=== PATIENT | female | born 1990 | race Asian ===

== ENCOUNTER 2018-08-10 00:56 | Inpatient (IN) | payer OTHER ==
[~2018-08-10] VITALS: Ht 157.5 cm; Wt 67.3 kg
[~2018-08-10 00:56] MED LIST: DOCU-131 PO; IBUP-1222 PO; OXYC-302 PO
[2018-08-10 01:20] VITALS: BP 107/55
[2018-08-10] MEDS: LACTATED RINGERS 1,000 ML IV SCH ×4 (01:39→17:57)
[2018-08-10] MEDS ORDERED: D5%-LACTATED RINGERS 1,000 ML IV SCH (01:39)
[2018-08-10] MEDS ORDERED: OXYTOCIN 30U/ 0.9% NaCL 500ML 500 ML IV ONE (01:39)
[2018-08-10] MEDS ORDERED: NEWBORN KIT ONE (01:44)
[2018-08-10] MEDS ORDERED: MISOPROSTOL 200 MCG TABLET ONE (01:44)
[2018-08-10] MEDS ORDERED: OXYTOCIN 30U/ 0.9% NaCL 500ML 500 ML ONE ×3 (01:44→19:38)
[2018-08-10] MEDS ORDERED: LIDOCAINE 1%, 20ML ONE (01:44)
[2018-08-10] MEDS ORDERED: FENTANYL PF 100 MCG/2ML IV PRN (02:00)
[2018-08-10] MEDS ORDERED: CALCIUM CARBONATE 500 MG TAB.CHEW PO PRN (02:00)
[2018-08-10] MEDS ORDERED: ONDANSETRON 2MG/ML, 2ML IVPush PRN (02:00)
[2018-08-10] MEDS ORDERED: SODIUM CITRATE/CITRIC ACID 15 ML UDC PO PRN (02:00)
[2018-08-10] MEDS ORDERED: METOCLOPRAMIDE 5 MG/ML, 2ML IVPush PRN (02:00)
[2018-08-10 02:16] LABS: BASOPHILS # (AUTO) 0.09 x10^3/uL (0-0.1); BASOPHILS % (AUTO) 1 % (0-1); EOSINOPHILS # (AUTO) 0.05 x10^3/uL (0-0.4); EOSINOPHILS % (AUTO) 1 % (1-7); LYMPHOCYTES # (AUTO) 1.57 x10^3/uL (1-3.4); LYMPHOCYTES % (AUTO) 16 % (22-44); MD NO; MEAN CORPUSCULAR HEMOGLOBIN 29.2 pg (27.0-34.8); MEAN CORPUSCULAR HGB CONC 32.4 g/dL (32.4-35.8); MEAN CORPUSCULAR VOLUME 90.2 fL (80-100); MEAN PLATELET VOLUME 7.3 fL (7.4-10.4); MONOCYTES # (AUTO) 0.38 x10^3/uL (0.2-0.8); MONOCYTES % (AUTO) 4 % (2-9); NEUTROPHILS # (AUTO) 7.85 x10^3/uL (1.8-6.8); NEUTROPHILS % (AUTO) 79 % (42-75); PLATELET COUNT 271 x10^3/uL (130-400); RED BLOOD COUNT 4.13 x10^6/uL (3.82-5.3); RED CELL DISTRIBUTION WIDTH 13.4 % (9.6-15.2)
[2018-08-10] MEDS ORDERED: OXYTOCIN 30U/ 0.9% NaCL 500ML 500 ML IV PRN (06:45)
[2018-08-10] MEDS ORDERED: FENTANYL PF 100 MCG/2ML ONE ×2 (07:14→08:47)
[2018-08-10] MEDS ORDERED: FENTANYL/BUPIV./NS/PF 250 ML EPIDCONT SCH ×2 (07:17→08:39)
[2018-08-10] MEDS: FENTANYL PF 100 MCG/2ML IVPush PRN ×2 (07:19→08:56)
[2018-08-10] MEDS ORDERED: NALOXONE 0.4 MG/ML, 1ML IVPush PRN (09:00)
[2018-08-10] MEDS ORDERED: LACTATED RINGERS 1,000 ML IVBOLUS PRN (09:00)
[2018-08-10] MEDS ORDERED: EPHEDRINE 50 MG/ML, 1ML IVPush PRN (09:00)
[2018-08-10] MEDS ORDERED: BUPIVACAINE 0.25% ONE (10:21)
[2018-08-10] MEDS ORDERED: LIDOCAINE/PF 1.5%-EPI 1:200K, 30ML ONE (10:22)
[2018-08-10] MEDS ORDERED: LACTATED RINGERS 1,000 ML INTUTE SCH (10:30)
[2018-08-10] MEDS ORDERED: LACTATED RINGERS 1,000 ML INTUTE PRN (10:30)
[2018-08-10] MEDS ORDERED: EPHEDRINE 50 MG/ML, 1ML ONE (17:21)
[2018-08-10] MEDS ORDERED: OXYTOCIN 30U/ 0.9% NaCL 500ML 500 ML IV SCH (17:49)
[2018-08-10] MEDS ORDERED: MISOPROSTOL 200 MCG TABLET PR PRN (18:00)
[2018-08-10] MEDS ORDERED: ACETAMINOPHEN 325 MG TABLET PO PRN (18:00)
[2018-08-10] MEDS ORDERED: ONDANSETRON 2MG/ML, 2ML IV PRN (18:00)
[2018-08-10] MEDS ORDERED: BISACODYL 10 MG SUPP PR PRN (18:00)
[2018-08-10] MEDS ORDERED: RHOGAM FROM BLOOD BANK 1 NOTE EA IM/IV ONE (18:00)
[2018-08-10] MEDS ORDERED: HYDROcodone/APAP 5/325 TABLET PO PRN (18:00)
[2018-08-10] MEDS ORDERED: OXYcodone/APAP 5/325MG TABLET ONE (19:37)
[2018-08-10] MEDS ORDERED: ACETAMINOPHEN 325 MG TABLET ONE (19:40)
[2018-08-10] MEDS: OXYcodone/APAP 5/325MG TABLET PO PRN ×2 (19:43→23:34)
[2018-08-10] MEDS: OXYTOCIN 30U/ 0.9% NaCL 500ML 500 ML IV SCH (19:45)
[2018-08-10] MEDS: DOCUSATE 100 MG CAPSULE PO SCH (21:00)
[2018-08-10 21:55] VITALS: BP 98/61
[2018-08-11] VITALS (7 sets, daily range): BP systolic 92–111; BP diastolic 55–75
[2018-08-11] MEDS: LACTATED RINGERS 1,000 ML IV SCH ×2 (00:39→08:39)
[2018-08-11 01:10] LABS: MEAN CORPUSCULAR HEMOGLOBIN 29.6 pg (27.0-34.8); MEAN CORPUSCULAR VOLUME 89.7 fL (80-100); MEAN PLATELET VOLUME 6.5 fL (7.4-10.4); PLATELET COUNT 241 x10^3/uL (130-400); RED BLOOD COUNT 2.96 x10^6/uL (3.82-5.3); RED CELL DISTRIBUTION WIDTH 13.3 % (9.6-15.2)
[2018-08-11 01:39] LABS: BASOPHILS # (AUTO) 0.01 x10^3/uL (0-0.1); BASOPHILS % (AUTO) 0 % (0-1); EOSINOPHILS # (AUTO) 0.02 x10^3/uL (0-0.4); EOSINOPHILS % (AUTO) 0 % (1-7); LYMPHOCYTES # (AUTO) 1.51 x10^3/uL (1-3.4); LYMPHOCYTES % (AUTO) 9 % (22-44); MD SCAN; MONOCYTES # (AUTO) 0.95 x10^3/uL (0.2-0.8); MONOCYTES % (AUTO) 6 % (2-9); NEUTROPHILS # (AUTO) 13.74 x10^3/uL (1.8-6.8); NEUTROPHILS % (AUTO) 85 % (42-75)
[2018-08-11] MEDS: OXYTOCIN 30U/ 0.9% NaCL 500ML 500 ML IV SCH (03:49)
[2018-08-11] MEDS: IBUPROFEN 800 MG TABLET PO PRN ×2 (08:49→19:20)
[2018-08-11] MEDS: DOCUSATE 100 MG CAPSULE PO SCH ×3 (08:49→19:20)
[2018-08-11] MEDS: PRENATAL VIT/IRON/FA 1 EACH TABLET PO SCH (08:49)
[2018-08-11] MEDS: OXYcodone/APAP 5/325MG TABLET PO PRN (08:49)
[2018-08-12] MEDS: IBUPROFEN 800 MG TABLET PO PRN (03:18)
[2018-08-12 08:20] VITALS: BP 93/55
[2018-08-12] MEDS: PRENATAL VIT/IRON/FA 1 EACH TABLET PO SCH (08:30)
[2018-08-12] MEDS: DOCUSATE 100 MG CAPSULE PO SCH (08:30)
[2018-08-12] MEDS ORDERED: DOCU-131 PO (09:50)
[2018-08-12] MEDS ORDERED: IBUP-1222 PO (09:50)
[2018-08-12] MEDS ORDERED: HYDR-3240 PO (09:50)
== END 2018-08-12 12:35 | disposition home or self-care (01) | DRG 806 ==
LOC: LDOP 00:56 → LDIP 01:45 → 2NW 21:00
PROVIDERS: ADMIT Obstetrics & Gynecology; ATTEND Obstetrics & Gynecology
PROC: 0KQM0ZZ Repair Perineum Muscle, Open Approach (ICD-10-PCS; principal; 2018-08-10)
PROC: 10E0XZZ Delivery of Products of Conception, External Approach (ICD-10-PCS; 2018-08-10)
PROC: 3E0R3BZ Introduction of Anesthetic Agent into Spinal Canal, Percutaneous Approach (ICD-10-PCS; 2018-08-10)
PROC: 00HU33Z Insertion of Infusion Device into Spinal Canal, Percutaneous Approach (ICD-10-PCS; 2018-08-10)
DX: O77.0 Labor and delivery complicated by meconium in amniotic fluid (principal); O72.1 Other immediate postpartum hemorrhage; Z37.0 Single live birth; O34.211 Maternal care for low transverse scar from previous cesarean delivery; Z3A.38 38 weeks gestation of pregnancy; O70.1 Second degree perineal laceration during delivery
CPT/HCPCS: 36415; 85025; 86850; 86900; 89060; G0378; J3010; J3490; J2590; J7120; Q0114